=== PATIENT | male | born 1955 | race Hispanic/Latino ===

== ENCOUNTER 2020-12-05 10:49 | Inpatient (IN) | payer SELFPAY ==
[~2020-12-05] VITALS: Ht 170.2 cm; Wt 95.3 kg
[2020-12-05 12:20] LABS: CLARITY,URINE CLEAR (CLEAR); COLOR,URINE YELLOW (YELLOW); LEUKOCYTE ESTERASE ,URINE NEGATIVE (NEGATIVE); NITRITE,URINE NEGATIVE (NEGATIVE); PROTEIN,URINE DIPSTICK 1+ (NEGATIVE)
[2020-12-05 12:21] LABS: KETONES,URINE 2+ (NEGATIVE); URINE UROBILINOGEN 1 mg/dL (0.2 - 1)
[2020-12-05 12:29] LABS: BACTERIA,URINE FEW /HPF; EPITHELIAL CELLS,URINE FEW /LPF; RBC,URINE 0-5 /HPF (0-5); RENAL EPITHELIAL CELLS,URINE RARE
[2020-12-05] MEDS ORDERED: SODIUM CHLORIDE 0.9% 1000ML 1,000 ML IV SCH (12:30)
[2020-12-05] MEDS ORDERED: CASIRIVIMAB/IMDEVIMAB 10 ML in SODIUM CHLORIDE 0.9% 100 ML IV ONE (12:30)
[2020-12-05 12:47] LABS: BASOPHILS % 0.4 % (0.0-1.0); HEMATOCRIT 44.5 % (38.2-49.6); HEMOGLOBIN 14.3 g/dL (14.0-18.0); LYMPHOCYTES # (AUTO) 1.8 (1.0-3.2); LYMPHOCYTES % 38.1 % (18.0-39.1); MEAN CORPUSCULAR HEMOGLOBIN 28.1 pg (28-32); MEAN CORPUSCULAR HGB CONC 32.1 g/dL (31-35); MEAN CORPUSCULAR VOLUME 87.4 fL (81-99); MONOCYTES # (AUTO) 0.5 (0.2-0.8); MONOCYTES % 9.7 % (4.4-11.3); NEUTROPHILS # (AUTO) 2.4 (2.1-6.9); NEUTROPHILS % 51.6 % (38.7-80.0); PLATELET COUNT 127 x10e3/uL (140-360); RED BLOOD COUNT 5.09 x10e6/uL (4.3-5.7); RED CELL DISTRIBUTION WIDTH 13.2 % (11.7-14.4)
[2020-12-05 13:15] LABS: ALBUMIN 3.6 g/dL (3.5-5.0); ALBUMIN/GLOBULIN RATIO 0.9 (0.8-2.0); CALCIUM 8.7 mg/dL (8.4-10.2); CREATININE, SERUM 0.79 mg/dL (0.72-1.25)
[2020-12-05] MEDS ORDERED: IOPAMIDOL 370 MG/ML 200 ML INFUS..BTL INJ ONE (14:53)
[2020-12-05] MEDS ORDERED: SODIUM CHLORIDE 0.9% 50ML 50 ML ONE (14:53)
[2020-12-05] MEDS ORDERED: ACETAMINOPHEN 325 MG TAB PO ONE (17:45)
[2020-12-05] MEDS ORDERED: IBUPROFEN 600 MG TAB PO STA (17:57)
[2020-12-05] MEDS ORDERED: ONDANSETRON HCL INJ 2MG/ML 2ML 2 MG/ML VIAL IV PRN (18:15)
[2020-12-05] MEDS ORDERED: ACETAMINOPHEN 325 MG TAB PO PRN (18:15)
[2020-12-05] MEDS ORDERED: SODIUM CHLORIDE FLUSH 10 ML SYR INJ PRN (18:15)
[2020-12-05] MEDS ORDERED: SODIUM CHLORIDE 0.9% 250ML 250 ML ONE ×3 (18:56→19:14)
[2020-12-05 19:55] LABS: CREATINE KINASE MB 0.5 ng/mL (0-5.0)
[2020-12-05 20:00] VITALS: BP 125/71
[2020-12-05] MEDS: CEFTRIAXONE 2 GM in SODIUM CHLORIDE 0.9% 100 ML IV SCH (20:10)
[2020-12-05] MEDS ORDERED: SODIUM CHLORIDE 0.9% 1000ML 1,000 ML IV ONE (20:15)
[2020-12-05] MEDS ORDERED: ZOLPIDEM TARTRATE 5 MG TAB PO PRN (20:15)
[2020-12-05] MEDS: ENOXAPARIN 30 MG/0.3 ML SYR SC SCH (20:57)
[2020-12-05 21:00] VITALS: BP 125/71
[2020-12-05] MEDS ORDERED: REMDESIVIR 200MG 200 MG in SODIUM CHLORIDE 0.9% 100 ML 100 ML IV ONE (21:00)
[2020-12-05 21:26] VITALS: BP 110/64
[2020-12-06] VITALS (7 sets, daily range): BP systolic 119–130; BP diastolic 63–84
[2020-12-06 05:03] LABS: BASOPHILS % 0.2 % (0.0-1.0); HEMATOCRIT 41.7 % (38.2-49.6); HEMOGLOBIN 14.1 g/dL (14.0-18.0); LYMPHOCYTES # (AUTO) 1.3 (1.0-3.2); LYMPHOCYTES % 19.8 % (18.0-39.1); MEAN CORPUSCULAR HEMOGLOBIN 28.7 pg (28-32); MEAN CORPUSCULAR HGB CONC 33.8 g/dL (31-35); MEAN CORPUSCULAR VOLUME 84.9 fL (81-99); MONOCYTES # (AUTO) 0.4 (0.2-0.8); MONOCYTES % 6.8 % (4.4-11.3); NEUTROPHILS # (AUTO) 4.6 (2.1-6.9); NEUTROPHILS % 72.7 % (38.7-80.0); PLATELET COUNT 108 x10e3/uL (140-360); RED BLOOD COUNT 4.91 x10e6/uL (4.3-5.7); RED CELL DISTRIBUTION WIDTH 13.3 % (11.7-14.4)
[2020-12-06 05:22] LABS: ALBUMIN 3.1 g/dL (3.5-5.0); ALBUMIN/GLOBULIN RATIO 0.9 (0.8-2.0); ANION GAP 11.7 mmol/L (8-16); CHOL/HDL RATIO 3.6 (3.9-4.7); CREATININE, SERUM 0.68 mg/dL (0.72-1.25); POTASSIUM 3.7 mmol/L (3.5-5.1)
[2020-12-06 05:37] LABS: CREATINE KINASE 186 IU/L (30-200)
[2020-12-06 05:42] LABS: THYROID STIMULATING HORMONE 1.465 uIU/mL (0.350-4.940)
[2020-12-06] MEDS: DEXAMETHASONE SOD PHOS 10 MG/1 ML VIAL IV SCH (08:51)
[2020-12-06] MEDS: ASCORBIC ACID 500 MG TAB PO SCH ×2 (08:52→16:00)
[2020-12-06] MEDS: ENOXAPARIN 30 MG/0.3 ML SYR SC SCH ×2 (08:53→21:34)
[2020-12-06] MEDS: ZINC SULFATE 50 MG CAP PO SCH (08:53)
[2020-12-06] MEDS: REMDESIVIR 100MG 100 MG in SODIUM CHLORIDE 0.9% 100 ML IV SCH (13:39)
[2020-12-06 15:00] LABS: CREATINE KINASE MB 0.7 ng/mL (0-5.0)
[2020-12-06] MEDS: CEFTRIAXONE 2 GM in SODIUM CHLORIDE 0.9% 100 ML IV SCH (21:34)
[2020-12-07] VITALS: BP 114/86
[2020-12-07 04:00] VITALS: BP 109/74
[2020-12-07 08:14] VITALS: BP 111/78
[2020-12-07] MEDS: DEXAMETHASONE SOD PHOS 10 MG/1 ML VIAL IV SCH (08:37)
[2020-12-07] MEDS: ASCORBIC ACID 500 MG TAB PO SCH ×2 (08:37→16:53)
[2020-12-07] MEDS: ENOXAPARIN 30 MG/0.3 ML SYR SC SCH ×2 (08:37→20:55)
[2020-12-07] MEDS: ZINC SULFATE 50 MG CAP PO SCH (08:37)
[2020-12-07 09:26] LABS: BASOPHILS % 0.2 % (0.0-1.0); HEMOGLOBIN 14.7 g/dL (14.0-18.0); LYMPHOCYTES # (AUTO) 1.8 (1.0-3.2); LYMPHOCYTES % 37.9 % (18.0-39.1); MEAN CORPUSCULAR HEMOGLOBIN 28.5 pg (28-32); MEAN CORPUSCULAR HGB CONC 32.7 g/dL (31-35); MEAN CORPUSCULAR VOLUME 87.2 fL (81-99); MONOCYTES # (AUTO) 0.4 (0.2-0.8); MONOCYTES % 9.1 % (4.4-11.3); NEUTROPHILS # (AUTO) 2.5 (2.1-6.9); NEUTROPHILS % 52.2 % (38.7-80.0); PLATELET COUNT 143 x10e3/uL (140-360); RED BLOOD COUNT 5.16 x10e6/uL (4.3-5.7); RED CELL DISTRIBUTION WIDTH 13.2 % (11.7-14.4)
[2020-12-07 09:33] VITALS: BP 111/78
[2020-12-07 09:49] LABS: ALBUMIN 3.3 g/dL (3.5-5.0); ALBUMIN/GLOBULIN RATIO 0.9 (0.8-2.0); ANION GAP 13.9 mmol/L (8-16); CALCIUM 8.7 mg/dL (8.4-10.2); CREATININE, SERUM 0.69 mg/dL (0.72-1.25); POTASSIUM 3.9 mmol/L (3.5-5.1)
[2020-12-07] MEDS: REMDESIVIR 100MG 100 MG in SODIUM CHLORIDE 0.9% 100 ML IV SCH (14:08)
[2020-12-07 20:00] VITALS: BP 115/71
[2020-12-07] MEDS: CEFTRIAXONE 2 GM in SODIUM CHLORIDE 0.9% 100 ML IV SCH (20:55)
[2020-12-08] VITALS (8 sets, daily range): BP systolic 102–123; BP diastolic 68–104
[2020-12-08 06:06] LABS: HEMATOCRIT 41.9 % (38.2-49.6); HEMOGLOBIN 13.9 g/dL (14.0-18.0); LYMPHOCYTES % 35.3 % (18.0-39.1); MEAN CORPUSCULAR HEMOGLOBIN 28.5 pg (28-32); MEAN CORPUSCULAR HGB CONC 33.2 g/dL (31-35); MEAN CORPUSCULAR VOLUME 85.9 fL (81-99); MONOCYTES # (AUTO) 0.5 (0.2-0.8); MONOCYTES % 8.7 % (4.4-11.3); NEUTROPHILS # (AUTO) 3.1 (2.1-6.9); NEUTROPHILS % 55.5 % (38.7-80.0); PLATELET COUNT 160 x10e3/uL (140-360); RED BLOOD COUNT 4.88 x10e6/uL (4.3-5.7); RED CELL DISTRIBUTION WIDTH 13.2 % (11.7-14.4)
[2020-12-08 06:34] LABS: ALBUMIN 2.9 g/dL (3.5-5.0); ALBUMIN/GLOBULIN RATIO 0.9 (0.8-2.0); CALCIUM 8.5 mg/dL (8.4-10.2); CREATININE, SERUM 0.62 mg/dL (0.72-1.25)
[2020-12-08] MEDS: ASCORBIC ACID 500 MG TAB PO SCH ×2 (07:30→16:23)
[2020-12-08] MEDS: DEXAMETHASONE SOD PHOS 10 MG/1 ML VIAL IV SCH (07:30)
[2020-12-08] MEDS: ENOXAPARIN 30 MG/0.3 ML SYR SC SCH ×2 (07:30→20:32)
[2020-12-08] MEDS: ZINC SULFATE 50 MG CAP PO SCH (07:30)
[2020-12-08] MEDS: REMDESIVIR 100MG 100 MG in SODIUM CHLORIDE 0.9% 100 ML IV SCH (16:22)
[2020-12-08] MEDS: CEFTRIAXONE 2 GM in SODIUM CHLORIDE 0.9% 100 ML IV SCH (20:32)
[2020-12-09] VITALS: BP 107/72
[2020-12-09 04:00] VITALS: BP 109/73
[2020-12-09 07:37] VITALS: BP 118/76
[2020-12-09] MEDS: ZINC SULFATE 50 MG CAP PO SCH (08:02)
[2020-12-09] MEDS: ASCORBIC ACID 500 MG TAB PO SCH (08:02)
[2020-12-09] MEDS: DEXAMETHASONE SOD PHOS 10 MG/1 ML VIAL IV SCH (08:02)
[2020-12-09] MEDS: ENOXAPARIN 30 MG/0.3 ML SYR SC SCH (08:02)
[2020-12-09 10:20] LABS: ALBUMIN/GLOBULIN RATIO 0.9 (0.8-2.0); ANION GAP 11.7 mmol/L (8-16); CALCIUM 8.4 mg/dL (8.4-10.2); CREATININE, SERUM 0.66 mg/dL (0.72-1.25); POTASSIUM 3.7 mmol/L (3.5-5.1)
[2020-12-09 10:23] VITALS: BP 118/76
[2020-12-09 10:36] LABS: BASOPHILS % 0.3 % (0.0-1.0); EOSINOPHILS % 0.1 % (0.0-6.0); HEMATOCRIT 42.9 % (38.2-49.6); HEMOGLOBIN 13.9 g/dL (14.0-18.0); LYMPHOCYTES % 28.7 % (18.0-39.1); MEAN CORPUSCULAR HEMOGLOBIN 28.5 pg (28-32); MEAN CORPUSCULAR HGB CONC 32.4 g/dL (31-35); MEAN CORPUSCULAR VOLUME 88.1 fL (81-99); MONOCYTES # (AUTO) 0.5 (0.2-0.8); MONOCYTES % 6.5 % (4.4-11.3); NEUTROPHILS # (AUTO) 4.4 (2.1-6.9); PLATELET COUNT 214 x10e3/uL (140-360); RED BLOOD COUNT 4.87 x10e6/uL (4.3-5.7); RED CELL DISTRIBUTION WIDTH 13.2 % (11.7-14.4)
[2020-12-09 11:07] VITALS: BP 111/74
[2020-12-09] MEDS ORDERED: ONDANSETRON HCL 4 MG ORAL DISINTEGRATING TAB PO PRN (13:00)
[2020-12-09] MEDS ORDERED: DECADRON4 M1 PO (13:14)
[2020-12-09] MEDS ORDERED: ASPIRIN81 MG PO (14:50)
== END 2020-12-09 16:52 | disposition home or self-care (01) | DRG 177 ==
LOC: ER 10:51 → ERHOLD 18:11 → IMCU 19:43
PROVIDERS: ADMIT Internal Medicine; ATTEND Internal Medicine
PROC: XW033G6 Introduction of REGN-COV2 Monoclonal Antibody into Peripheral Vein, Percutaneous Approach, New Technology Group 6 (ICD-10-PCS; principal; 2020-12-05)
PROC: XW033E5 Introduction of Remdesivir Anti-infective into Peripheral Vein, Percutaneous Approach, New Technology Group 5 (ICD-10-PCS; 2020-12-05)
PROC: 3E0333Z Introduction of Anti-inflammatory into Peripheral Vein, Percutaneous Approach (ICD-10-PCS; 2020-12-06)
DX: U07.1 COVID-19 (principal); J12.82 Pneumonia due to coronavirus disease 2019; J96.01 Acute respiratory failure with hypoxia; B17.8 Other specified acute viral hepatitis; Z88.0 Allergy status to penicillin; D69.6 Thrombocytopenia, unspecified
CPT/HCPCS: 36415; 71045; 71260; 80053; 80061; 81001; 82550; 82553; 82948; 83036; 84443; 84484; 85025; 85379; 93005; 96361; 99284; J0456; J0696; J1100; J1650; J7030; J7050; Q9967; U0002